=== PATIENT | male | born 1945 | race Caucasian/White ===

== ENCOUNTER 2022-09-02 17:23 | Emergency (ER) | payer OTHER ==
[2022-09-02 18:50] VITALS: BP 140/62; PULSE 53; RESP 18; TEMP 98.5; BMI 25.1
[2022-09-02] MEDS ORDERED: LIDOCAINE 5% TOPICAL PATCH TP ONE (19:47)
[2022-09-02] MEDS ORDERED: ACETAMINOPHEN 500 MG TABLET (FP) PO ONE (19:47)
[2022-09-02 20:58] LABS: BASO % 0.3 % (0-2.0); EOS % 2.2 % (0-4.5); HEMATOCRIT 45.6 % (35.4-49); HEMOGLOBIN 14.9 GM/dL (11.7-16.9); LYMPH % 10.9 % (8-40); MCH 29.2 pg (25.7-33.7); MCHC 32.8 g/dl (32.0-35.9); MEAN CELL VOLUME 88.9 fl (80-96); MEAN PLT VOLUME 9.6 fl (7.5-11.1); MONO % 8.8 % (3.8-10.2); NEUT % 77.8 % (42.8-82.8); PLATELET COUNT 291 10^3/uL (134-434); RBC 5.12 M/mm3 (4.00-5.60); RDW 13.8 % (11.9-15.9); WHITE BLOOD COUNT 10.9 K/mm3 (4.0-10.0)
[2022-09-02] MEDS ORDERED: SODIUM CHLORIDE 0.9% 500 ML INFUS.BAG IV ONE (20:58)
[2022-09-02 21:08] LABS: INR 1.29 (0.83-1.09); PROTHROMBIN TIME (PATIENT) 14.9 SEC (9.7-13.0)
[2022-09-02 21:10] LABS: ACTIVATED PTT 32.3 SECONDS (25.2-36.5)
[2022-09-02 21:22] LABS: ALBUMIN 3.6 g/dl (3.4-5.0); BLOOD UREA NITROGEN 19.2 mg/dL (7-18); CALCIUM 9.2 mg/dL (8.5-10.1); MAGNESIUM 2.2 mg/dL (1.8-2.4)
[2022-09-02 21:26] LABS: TOT PROT 6.3 g/dl (6.4-8.2)
[2022-09-02 21:30] LABS: N-TERMINAL BNP 124.2 pg/ml (5-450)
[2022-09-02] MEDS ORDERED: LIDOCAINE PATCH REMOVAL MC SCH (22:00)
[2022-09-02 22:02] LABS: URINE APPEARANCE CLEAR; URINE BILIRUBIN NEGATIVE (NEGATIVE); URINE COLOR YELLOW; URINE GLUCOSE (UA) NEGATIVE (NEGATIVE); URINE KETONE NEGATIVE (NEGATIVE); URINE LEUK ESTERASE NEGATIVE (NEGATIVE); URINE NITRITE NEGATIVE (NEGATIVE); URINE PROTEIN NEGATIVE (NEGATIVE); URINE UROBILINOGEN 0.2 mg/dL (0.2-1.0)
[2022-09-02] MEDS ORDERED: ACETAMINOPHEN 325 MG TABLET (FP) ONE (23:46)
[2022-09-02] MEDS ORDERED: LIDOCAINE 5% TOPICAL PATCH ONE (23:46)
== END 2022-09-03 00:34 | disposition home or self-care (01) ==
LOC: JER 17:23
DX: R53.1 Weakness (principal); R55 Syncope and collapse
CPT/HCPCS: 36415; 70450-TC; 80053; 81003; 83735; 83880; 84443; 84484; 85025; 85610; 85730; 86850; 86900; 86901; 87086; 93005; 93010; 99285-25